=== PATIENT | male | born 1995 | race Caucasian/White ===

== ENCOUNTER 2018-07-29 09:25 | Emergency (ER) | payer SELFPAY ==
[2018-07-29 09:26] VITALS: BP 119/77; PULSE 86; RESP 16; TEMP 36.7; O2SAT 98; BMI 22.0
--- NOTE | 2018-07-29 09:41 | ED.VISSUMM ---
- ER Visit Summary Date of Service: 07/29/18 Chief Complaint: Sore throat History of Present Illness: The patient is a 23 M with no primary care physician. He reports his sore throat that began yesterday. Pain is 7 out of 10 at worst and 5-10 currently. Is worsened by swallowing. Is not taking anything for pain. Ports he had a fever to 101 degrees. He said nasal congestion. He reports he has a little bit of nonproductive cough. No shortness of breath. Physical Examination: Vitals: Stable. Afebrile. General: Well-nourished and well-developed. Head: Normocephalic atraumatic. HEENT: Erythema and 2+ tonsillar enlargement on the right. There is exudate present. There is no peritonsillar abscess. No swelling of the soft palate. No uvular shift. The left tonsil is not enlarged. He does have anterior cervical lymphadenopathy that is tender. Neck: Supple. No JVD. Cardiovascular: Regular rate and rhythm. No murmurs. Respiratory: No respiratory distress. Clear to auscultation bilaterally. Abdominal: Soft, nontender, nondistended, normal bowel sounds. No guarding, rebound, or peritoneal signs. Back: Nontender. Extremities: Nontender, no edema. Skin: Normal color, no rash. Neurologic: Alert and oriented ?3. Cranial nerves II through XII are intact. Normal strength and sensation. Psych: Normal affect. Emergency Department Course and Treatment: I discussed treatment options with the patient. He does not have insurance. He would like to be treated with an antibiotic regardless of the results of a strep test. Treatment Plan: Patient is not given antibiotics. Due to cost concerns. He will be discharged prescription for 10 days of amoxicillin. Instructed to follow-up the [facility] in 3-5 days if not improving. Return to the emergency department for any worsening symptoms. Disposition: To home in improved and stable condition. Impression: 1. Tonsillitis. This note was generated with [employer] dictation software. It may contain incorrect words, spelling, and punctuation that were not noted in review of the chart prior to signing ED Disposition - Plan for ED Patient: Chief Complaint: Sore Throat Instructions: ED Tonsillitis Prescriptions: Amoxicillin 500 mg PO TID #30 tablet Referrals: [facility] [NON-STAFF] - 1 Week if not improving
== END 2018-07-29 09:53 | disposition home or self-care (01) ==
LOC: ED 09:51
PROVIDERS: Emergency Provider Emergency Medicine
DX: J03.90 Acute tonsillitis, unspecified (principal); F17.210 Nicotine dependence, cigarettes, uncomplicated
CPT/HCPCS: 99282

== ENCOUNTER 2019-03-02 16:45 | Emergency (ER) | payer SELFPAY ==
[2019-03-02 16:47] VITALS: BP 148/97; PULSE 68; RESP 18; TEMP 36.9; O2SAT 99; BMI 20.2
--- NOTE | 2019-03-02 17:05 | US_ITS ---
STUDY: SCROTUM ULTRASOUND REASON FOR EXAM: Male, 23 years old. Testicular pain TECHNIQUE: Ultrasound evaluation of the scrotum was performed with color Doppler and static ni-scale imaging. COMPARISON: None. FINDINGS: RIGHT TESTICLE INTRATESTICULAR: There is a normal size of the right testicle. The right testicle measures 4.1 x 3.1 x 2.1 cm. There is a homogenous echotexture. There is normal arterial and normal venous vascularity. There is no demonstrated right testicular mass or cyst. EXTRATESTICULAR: The epididymis is normal in size. The epididymis head measures 0.7 x 0.8 cm. There is normal vascularity of the epididymis. There is no demonstrated epididymal cystic structure. There is no demonstrated hydrocele. There is no demonstrated varicocele. There is no demonstrated extratesticular mass or cyst. LEFT TESTICLE INTRATESTICULAR: There is a normal size of the left testicle. The left testicle measures 3.8 x 2.9 x 2.0 cm. There is a homogenous echotexture. There is normal arterial and normal venous vascularity. There is no demonstrated left testicular mass or cyst. EXTRATESTICULAR: The epididymis is normal in size. The epididymis head measures 0.6 x 0.8 cm. There is normal vascularity of the epididymis. There is no demonstrated epididymal cystic structure. There is a small hydrocele. There are prominent extratesticular veins consistent with a varicocele. There is no demonstrated extratesticular mass or cyst. US/Testicular with Arterial Flow IMPRESSION: Normal bilateral testicles. Electronically Signed: Rashard Salas MD at 18:04 EDT Tel , Service support ,
--- NOTE | 2019-03-02 17:08 | ED.VISSUMM ---
- ER Visit Summary Date of Service: 03/02/19 Chief Complaint: Scrotal pain History of Present Illness: The patient is a 23 M who has pain in the scrotal and testicle area. He said this for 3 days. On the left-hand side. He denies any penile discharge. No trauma. He is sexually active with his girlfriend. She cheated on him previously and he is concerned about STDs. Again, no penile discharge. No dysuria or hematuria. Physical Examination: Vital signs are reviewed. Abdomen is soft and nontender. Genitourinary exam shows tenderness of the left testicle. There is no swelling. No scrotal skin changes. There is no penile discharge. No lesions. His neurologic exam is normal. Test Results: Urinalysis is negative for infection. Ultrasound of the testicle reveals no acute abnormalities. Emergency Department Course and Treatment: The patient's work-up is negative. I believe that he is more concerned about STDs and anything else. This will be sent off. He will get results in a couple of days. They will call him if he is positive. Treatment Plan: [] Disposition: Discharge Impression: Left testicle pain This note was generated with [employer] dictation software. It may contain incorrect words, spelling, and punctuation that were not noted in review of the chart prior to signing ED Disposition - Plan for ED Patient: Disposition: Home or Assisted Living Instructions: ED Contusion Testicles Or Scrotum Referrals: Care Physician,No Primary [Primary Care Provider] -
[2019-03-02 17:11] LABS: Mucous, Urine 0 SEEN /hpf (<or=2+); Red Blood Cells-Urine 0 SEEN /hpf (0-5); Squamous Epithelial Cells - UA 0 SEEN /hpf (0-5); White Blood Cells 0 SEEN /hpf (0-5)
[2019-03-02 17:14] LABS: Color, Urine Yellow (Yellow); Glucose, Dipstick Normal (Normal); Ketone-Dipstick Negative (Negative); Leukocyte Esterase-Dipstick Negative /ul (Negative); Nitrite-Dipstick Negative (Negative); Occult Blood-Urine Negative /ul (Negative); Protein-Dipstick Negative (Negative); Urine Bilirubin Dipstick Negative (Negative); Urine Clarity Cloudy (Clear); Urine Urobilinogen Normal (Normal)
[2019-03-02 17:25] LABS: Amorphous Sediment 4+; Bacteria 4+ /hpf (None Seen)
--- NOTE | 2019-03-02 18:38 | ED.DEP ---
ED Disposition - Plan for ED Patient: Disposition: Home or Assisted Living Instructions: ED Contusion Testicles Or Scrotum Referrals: Care Physician,No Primary [Primary Care Provider] -
== END 2019-03-02 18:52 | disposition home or self-care (01) ==
PROVIDERS: Emergency Provider Emergency Medicine
DX: N50.812 Left testicular pain (principal)
CPT/HCPCS: 76870; 81001; 93976; 99282

== ENCOUNTER 2019-07-18 17:23 | Emergency (ER) | payer SELFPAY ==
[2019-07-18 17:24] VITALS: BP 125/68; PULSE 90; RESP 18; TEMP 37.1; O2SAT 97; BMI 20.3
--- NOTE | 2019-07-18 17:35 | ED.RN ---
UPON PHYSICIAN ENTERING ROOM TO EVALUATE PATIENT, PATIENT STATES I HAVE TO GO, AND LEFT DEPARTMENT.
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
--- NOTE | 2019-07-18 18:30 | ED.RN ---
PATIENT LEFT PRIOR TO HEALTH INFORMATION OR SECONDARY INFORMATION BEING OBTAINED.
== END 2019-07-18 18:31 | disposition left against medical advice (07) ==
LOC: ED 17:41
PROVIDERS: Emergency Provider Emergency Medicine
DX: S09.93XA Unspecified injury of face, initial encounter (principal); Y09 Assault by unspecified means; Y92.9 Unspecified place or not applicable; Y99.9 Unspecified external cause status; F17.200 Nicotine dependence, unspecified, uncomplicated

== ENCOUNTER 2019-12-20 17:41 | Emergency (ER) | payer MEDICAID, SELFPAY ==
[2019-12-20 17:42] VITALS: BP 153/91; PULSE 84; RESP 15; TEMP 36.8; O2SAT 99; BMI 24.4
[2019-12-20 18:07] VITALS: O2SAT 100
--- NOTE | 2019-12-20 18:07 | EKG12_ITS ---
Test Reason : CP Blood Pressure : / mmHG Vent. Rate : 075 BPM Atrial Rate : 075 BPM P-R Int : 154 ms QRS Dur : 100 ms QT Int : 366 ms P-R-T Axes : 007 077 039 degrees QTc Int : 408 ms Normal sinus rhythm consider acute pericarditis versus early repolarization Abnormal ECG Confirmed by GOLDEN JAMES, LOCO ([id number]), video news editor SHIRIN LI ([id number]) on 12/22/2019 1:21:52 PM Referred By: DC Confirmed By:LOCO FRANKS MD
[2019-12-20 18:23] LABS: Absolute Lymphocyte Count 1.48 X10^3/uL (0.83-4.51); Absolute Neutrophil Count 7.6 X10^3/uL (2.0-7.7); Basophil# 0.04 X10^3/uL; Basophil% 0.4 % (0-1); Eosinophil# 0.28 X10^3/uL; Eosinophils% 2.8 % (0-5); Hematocrit 43.9 % (40-54); Hemoglobin 14.9 g/dL (13.0-16.5); Lymphocyte # 1.48 X10^3/ul (4.0); Lymphocyte % 14.7 % (19-41); Mean Corp Hgb Conc 33.9 g/dL (32-36); Mean Corpuscular Hgb 30.8 pg (27.0-32.0); Mean Corpuscular Volume 90.9 fL (80-94); Mean Platelet Vol. 9.4 fl (6.2-12.0); Monocyte# 0.68 X10^3/uL; Monocyte% 6.7 % (0-10); NRBC Flagged by Analyzer 0 % (0-5); Neutrophil # 7.57 X10^3/uL (2.7-7.7); Platelet Count 221 K/mm3 (150-450); RBC Distribution Width CV 12.2 % (11.6-14.6); RBC Distribution Width SD 39.8 fl (35.1-43.9); Red Blood Count 4.83 M/mm3 (4.6-6.2); White Blood Count 10.1 K/mm3 (4.4-11.0)
--- NOTE | 2019-12-20 18:25 | RAD_ITS ---
STUDY: X-RAY CHEST REASON FOR EXAM: Male, 24 years old. CHEST PAIN TECHNIQUE: Single frontal view of the chest. COMPARISON: None. FINDINGS: The lungs are clear and expanded. There is no demonstrated pleural abnormality. Normal size heart. Normal mediastinum and susan. Normal visualized pulmonary arteries. Normal visualized aortic arch and descending thoracic aorta. Normal visualized thoracic spine. Normal visualized ribs, clavicles, and shoulders. There is no demonstrated abnormality of the visualized soft tissue structures of the upper abdomen. RAD/Chest 1 View (Portable) IMPRESSION: Normal x-ray examination of the chest. Electronically Signed: Denny Christine MD at 18:49 EDT Tel , Service support ,
--- NOTE | 2019-12-20 18:28 | ED.DCSUM_ITS ---
- ER Visit Summary Date of Service: 12/20/19 Chief Complaint: Chest pain History of Present Illness: The patient is a 24 M who presents with chest pain that began today. Patient describes the pain as heaviness and throbbing. Patient states the pain is over the substernal area and upper chest. Patient states his pain is worse with bending forward. Patient is to some shortness of breath and lightheadedness with this. Patient also admits to some palpitations. Patient denies any nausea or vomiting. Patient denies any diaphoresis. Patient denies any cough or fevers. Patient denies any recent travel or recent surgery. Cardiac risk factors include family history of his father who had coronary artery disease in his 40s and he is a smoker. Patient has no PE risk factors. Physical Examination: Vital signs are stable. Patient is afebrile. Patient is in no acute distress. Oral mucosa is pink and moist. Neck is supple. Trachea is midline. There is no JVD noted. Heart was regular rate and rhythm. There were no murmurs or rubs auscultated. Lungs are clear and equal bilaterally. Abdomen is soft. Bowel sounds are normal. There is no tenderness. There is no rebound or guarding noted. Skin is warm dry. Cranial nerves II through XII are intact. There are no focal motor or sensory deficits noted. Extremities are intact. There is no calf tenderness or edema. Test Results: EKG showed normal sinus rhythm with a rate of 75. There is di ffuse [address] elevation in all the leads. However, I do not see any WI depression. This may be due to pericarditis. CBC, basic metabolic profile, and troponin were all within normal limits. Portable chest x-ray was obtained. There is no acute cardiopulmonary process. Emergency Department Course and Treatment: Patient was given aspirin. Nitroglycerin was ordered. Patient was feeling better on reevaluation. Patient was given a prescription for ibuprofen. Patient was instructed to follow-up with his primary care physician in 5 to 7 days. Patient was also given cardiology referral. Patient was also given instructions regarding Covid. Patient understood and was agreeable with the plan. All questions were answered. Disposition: Discharge home Impression: 1. Chest pain 2. Possible pericarditis This note was generated with [employer] dictation software. It may contain incorrect words, spelling, and punctuation that were not noted in review of the chart prior to signing ED Disposition - Plan for ED Patient: Disposition: Home or Assisted Living Diagnosis: Chest pain Instructions: ED Chest Pain Pericarditis Prescriptions: Ibuprofen [Motrin] 800 mg PO TID PRN PRN #20 tab PRN Reason: Pain Score 1-10/10 Prescription Printed Referrals: Care Physician,No Primary [Primary Care Provider] - Keisha Sharma MD [STAFF PHYSICIAN] - 3-5 Days Prem Ramirez MD [STAFF PHYSICIAN] - 3-5 Days
[2019-12-20 18:44] LABS: Anion Gap 4 (5-15); BUN 11 mg/dL (7-18); Calcium,Total 9.3 mg/dL (8.5-10.1); Chloride 104 mmol/L (98-107); Creatinine, Serum 0.92 mg/dL (0.70-1.30); EST Glomerular Filtration Rate 109 mL/min (>60); Est Glom Filt Rate - Afr Amer 132 mL/min (>60); Estimated Creatinine Clearance 117.75 ml/min; Glucose 98 mg/dL (74-106); Potassium 3.8 mmol/L (3.5-5.1); Sodium Level 139 mmol/L (136-145)
[2019-12-20] MEDS: Aspirin 81 MG TAB.CHEW 324 MG PO (19:14)
[2019-12-20 19:15] VITALS: BP 132/84; PULSE 96; RESP 18; O2SAT 98
== END 2019-12-20 19:19 | disposition home or self-care (01) ==
PROVIDERS: Emergency Provider Emergency Medicine
DX: R07.9 Chest pain, unspecified (principal); R06.02 Shortness of breath; R42 Dizziness and giddiness; R00.2 Palpitations; Z82.49 Family history of ischemic heart disease and other diseases of the circulatory system; Z72.0 Tobacco use
CPT/HCPCS: 71045; 80048; 84484; 85025; 93005; 99285; A4216

== ENCOUNTER 2020-07-28 12:41 | Emergency (ER) | payer MEDICAID, SELFPAY ==
[2020-07-28 12:45] VITALS: BP 125/70; PULSE 88; RESP 18; TEMP 37; O2SAT 100; BMI 21.9
--- NOTE | 2020-07-28 13:10 | ED.VIS.GEN ---
History of Present Illness Chief Complaint: General Illness Informant: Patient Narrative: Patient is a 25-year-old male who presents to the emergency department for substance abuse. He was found on a bench by police. Patient states that he is going through withdrawal from heroin and fentanyl. Last time used was 2 days ago. States uses typically a gram per day. He has been doing this for the past couple of months. He has gone through withdrawal before in the past. He states he generally feels very poor right now. He denies any issues with alcohol. Does smoke cigarettes. He states he has been starting to have some loose stools. He has felt mildly nauseous. Having some body aches. He denies any fevers or chills. No headache or stiff neck. No cough, cold, congestion symptoms. No chest pain, shortness of breath or palpitations. Past Medical History - Allergies and Home Meds Allergies/Adverse Reactions: Allergies No Known Allergies Allergy (Verified 07/28/20 12:54) Primary Care Physician: Care Physician,No Primary [Primary Care Provider] - Prior records reviewed: Yes Past Medical History: None Smoking Status: Current every day smoker Review of Systems All systems negative except as indicated General: Reports: Malaise. Denies: Chills, Fever, Sweats Eyes: Denies: Visual changes - bilaterally, Diplopia ENT: Denies: Rhinorrhea, Sore throat Cardiovascular: Denies: Chest pain, Palpitations Respiratory: Denies: Dyspnea, Cough, Dyspnea on exertion Gastrointestinal: Reports: Diarrhea. Denies: Abdominal pain, Nausea, Vomiting, Melena, Hematochezia Genitourinary: Denies: Dysuria, Hematuria, Frequency Musculoskeletal: Denies: Back pain, Extremity Pain Skin: Denies: Rash, Wounds Neurological: Denies: Headache, Weakness, Numbness Physical Exam Vital Signs/Narrative: Vital Signs Temp Pulse Resp BP Pulse Ox 07/28/20 12:45 98.6 F 88 18 125/70 H 100 Inital Vital Signs reviewed: Yes General: Well nourished, Well developed, No Acute Distress, - - Patient does yawn a few times during exam Head: Normocephalic, Atraumatic Eyes: Perrl, EOMI ENT: Moist mucous membranes, No rhinorrhea Neck: Supple, Nontender Cardiovascular: Regular rate, Regular rhythm, No murmurs Respiratory: No distress, CTA bilaterally, Chest nontender Abdomen: Soft, Nontender, Nondistended, Normal bowel sounds Back: Nontender, Normal Inspection Extremities: Nontender, No edema Skin: Normal color, No rash Neurological: Alert, Oriented x3, Cranial nerves II-XII grossly intact, Normal Strength, Normal Sensation Psychological: Normal affect, Normal Mood Diagnostic/Tx/Re-eval - Medical Decision Making Patient presents to the emergency department to detox from heroin and fentanyl. Last used 2 days ago. Upon arrival to the emergency department vital signs within normal limits. In no acute distress. Will check basic lab work. While awaiting results of lab work patient eloped from the department. Nursing went to check on the patient and he was gone from the room. ED Disposition - Plan for ED Patient: Disposition: Home or Assisted Living Diagnosis: Opioid withdrawal Referrals: Care Physician,No Primary [Primary Care Provider] -
[2020-07-28 13:30] LABS: Absolute Lymphocyte Count 1.13 X10^3/uL (0.83-4.51); Absolute Neutrophil Count 7.8 X10^3/uL (2.0-7.7); Basophil# 0.01 X10^3/uL; Basophil% 0.1 % (0-1); Eosinophil# 0.01 X10^3/uL; Eosinophils% 0.1 % (0-5); Hemoglobin 15.2 g/dL (13.0-16.5); Lymphocyte # 1.13 X10^3/ul (4.0); Mean Corp Hgb Conc 35.3 g/dL (32-36); Mean Corpuscular Hgb 30.2 pg (27.0-32.0); Mean Corpuscular Volume 85.3 fL (80-94); Mean Platelet Vol. 9.4 fl (6.2-12.0); Monocyte# 0.44 X10^3/uL; Monocyte% 4.7 % (0-10); NRBC Flagged by Analyzer 0 % (0-5); Neutrophil # 7.76 X10^3/uL (2.7-7.7); Neutrophil % 82.7 % (47-70); Platelet Count 218 K/mm3 (150-450); RBC Distribution Width CV 11.9 % (11.6-14.6); RBC Distribution Width SD 36.8 fl (35.1-43.9); Red Blood Count 5.04 M/mm3 (4.6-6.2); White Blood Count 9.4 K/mm3 (4.4-11.0)
[2020-07-28 13:45] LABS: ALB/GLOB Ratio 1.1 RATIO (0.9-2.4); AST(SGOT) 18 U/L (15-37); Alanine Aminotransfer ALT/SGPT 34 U/L (16-61); Alkaline Phosphatase 87 U/L (45-117); Anion Gap 5 (5-15); BUN 12 mg/dL (7-18); BUN/Creat Ratio 16.3 RATIO (10-20); Calcium,Total 8.8 mg/dL (8.5-10.1); Chloride 106 mmol/L (98-107); Creatinine, Serum 0.74 mg/dL (0.70-1.30); EST Glomerular Filtration Rate 140 mL/min (>60); Est Glom Filt Rate - Afr Amer 170 mL/min (>60); Estimated Creatinine Clearance 147.79 ml/min; Globulin 3.5 g/dL (2.2-4.2); Glucose 105 mg/dL (74-106); Potassium 3.6 mmol/L (3.5-5.1); Protein, Total 7.5 g/dL (6.4-8.2); Sodium Level 138 mmol/L (136-145)
--- NOTE | 2020-07-28 14:14 | ED.RN ---
Patient found to have eloped from the ED. MD notified.
== END 2020-07-28 14:17 | disposition home or self-care (01) ==
LOC: ED 13:11
PROVIDERS: Emergency Provider Emergency Medicine
DX: F11.23 Opioid dependence with withdrawal (principal); F17.210 Nicotine dependence, cigarettes, uncomplicated
CPT/HCPCS: 36415; 80053; 80320; 85025; 99281; 99282; G0480

== ENCOUNTER 2021-04-01 21:36 | Emergency (ER) | payer MEDICAID, SELFPAY ==
[2021-04-01 21:37] VITALS: BP 123/83; PULSE 96; RESP 18; TEMP 36.6; O2SAT 98; BMI 25.0
[2021-04-01 21:40] VITALS: BP 123/83; PULSE 96; RESP 18; TEMP 36.6; O2SAT 98
--- NOTE | 2021-04-01 22:02 | EDS_ITS ---
HPI History of Present Illness Chief Complaint: Wound Narrative Narrative: 24-year-old male presenting with left hand erythema. He tried to tattoo himself and expand a spiderweb that it up previously and had to do on his left hand. 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 He states that he was sterilized equipment. He states he ran out of black ink and started to make red webs. He notes that he had some erythema diffusely over the dorsum of the hand. There is been no fluctuant masses. He has no numbness or tingling. He has no systemic signs or symptoms. [facility] Medical History Anxiety Depression Smoker Substance abuse Home Medications clindamycin HCl 450 mg PO 4X/DAY 7 Days #84 capsule 04/01/21 [Rx Last Taken Unknown] Allergy/AdvReac Type Severity Reaction Status Date / Time No Known Allergies Allergy Verified 04/01/21 21:40 Social History Smoking Status: Current every day smoker tobacco type: cigarettes ROS ROS ED Constitutional Constitutional ED: Denies chills, fever(s) or sweats Eyes Eyes: Denies blurry vision or diplopia ENT ENT ED: Denies rhinorrhea or sore throat Cardiovascular Cardiovascular: Denies chest pain or palpitations Respiratory/Chest Respiratory/Chest: Denies cough or dyspnea Gastrointestinal Gastrointestinal: Denies abdominal pain, nausea or vomiting Genitourinary Genitourinary ED: Denies hematuria Musculoskeletal Musculoskeletal: Denies arthralgias or myalgias Integumentary Reports rash Neurologic Neurologic: Denies headache(s) or paresthesias Psychiatric Psychiatric: Denies anxiety or depression EXAM Physical Exam Const Vital Signs: 04/01/21 21:37 04/01/21 21:40 Temperature 98 F 98 F Temperature Source Temporal Temporal Pulse Rate 96 96 Respiratory Rate 18 18 Blood Pressure 123/83 H 123/83 H Blood Pressure Mean 96 96 Pulse Ox 98 98 Oxygen Delivery Method Room Air Room Air Positive well nourished General Appearance ED: NAD HEENT Reports moist mucous membranes trauma Eyes PERRL and EOMs intact bilaterally Resp normal respiratory effort, no retractions and no use of accessory muscles Cardio regular rate and regular rhythm Neuro oriented x3 and CN's II-XII intact bilaterally Psych mental status grossly normal Skin Skin Narrative: Erythema and warmth over the dorsum of the left hand. There are no fluctuant masses. No lymphangitic streaking. Left hand is neurovascular intact with brisk cap with all 5 fingers. MDM MDM MDM Narrative Medical decision making narrative: Patient presents with a mild early cellulitis of the left hand. He is unsure if he has a history of MRSA or not. He has no systemic signs or symptoms. Patient counseled on wound care and keeping the hand clean and dry. He was placed in a dressing with bacitracin tonight. P atient was started on clindamycin for home. He is given return precautions. Impression: 1. left hand cellulitis Discharge Plan Triage Chief Complaint: Wound ED Provider: Mario Yee Dx/Rx/DC Orders Instructions: ED Cellulitis Prescriptions: New clindamycin HCl 150 mg capsule 450 mg PO 4X/DAY 7 Days Qty: 84 RF: 0 Primary Care Provider: Care Physician,No Primary Referrals: Elder Carmona MD [STAFF PHYSICIAN] - As soon as possible Care Physician,No Primary [Primary Care Provider] - Disposition Disposition: Home, Self Care
[2021-04-01] MEDS: Clindamycin HCl 150 MG Capsule 450 MG PO (22:07)
== END 2021-04-01 22:09 | disposition home or self-care (01) ==
PROVIDERS: Emergency Provider Student in an Organized Health Care Education/Training Program
DX: L03.114 Cellulitis of left upper limb (principal); F17.210 Nicotine dependence, cigarettes, uncomplicated
CPT/HCPCS: 99283